=== PATIENT | female | born 2000 | race African-American/Black ===

== ENCOUNTER 2020-06-12 15:16 | Emergency (ER) | payer SELFPAY ==
[~2020-06-12] VITALS: Ht 180.3 cm; Wt 81.6 kg
[2020-06-12 15:31] VITALS: BP 157/101
[2020-06-12] MEDS ORDERED: ONDANSETRON ODT 4 MG TAB PO ONE (18:30)
[2020-06-12 19:19] LABS: Basophils # (auto) 0.1 10 ^3/uL (0-0.2); Basophils % (auto) 0.6 % (0.0-2.0); Eosinophils # (auto) 0.1 10 ^3/uL (0-0.8); Eosinophils % (auto) 0.9 % (0.0-7.0); Hematocrit 41.3 % (36.0-46.0); Hemoglobin 13.8 g/dL (12.2-16.2); Lymphocytes # (auto) 3.7 10 ^3/uL (0.4-5.4); Mean Corpuscular Hemoglobin 27.4 pg (28.0-32.0); Mean Corpuscular Hgb Conc. 33.3 g/dL (32.0-36.0); Mean Corpuscular Volume 82.1 fL (80.0-100.0); Monocytes # (auto) 0.9 10 ^3/uL (0-1.3); Monocytes % (auto) 6.5 % (0.0-12.0); Nucleated Red Blood Cells % 0.1 %; Platelet Count (auto) 434 10^3/uL (140-450); Red Blood Cells 5.03 10^6/uL (4.0-5.20); Red Cell Distribution Width 13.3 % (11.8-14.3); White Blood Cell 13.9 10^3/uL (4.4-10.8)
[2020-06-12 19:22] LABS: Albumin 4.6 g/dL (3.4-5.0); BUN/Creatinine Ratio 8.9; Calcium 9.4 mg/dL (8.5-10.1); Magnesium 2.3 mg/dL (1.6-2.6); Potassium 3.7 mmol/L (3.5-5.1)
[2020-06-12 19:24] LABS: Bilirubin, Total 1.4 mg/dL (0.2-1.0); Total Protein 8.2 g/dL (6.4-8.2)
== END 2020-06-12 23:35 | disposition home or self-care (01) ==
LOC: ER 15:16
DX: J06.9 Acute upper respiratory infection, unspecified (principal)
CPT/HCPCS: 36415; 71045; 80053; 83735; 84702; 85025; 99284; Q0162